=== PATIENT | female | born 1975 | race Caucasian/White ===

== ENCOUNTER 2016-06-03 09:59 | Emergency (ER) | payer BC, OTHER ==
[~2016-06-03] VITALS: Ht 162.6 cm; Wt 77.1 kg
[2016-06-03] MEDS ORDERED: LIDOCAINE 1% INJ 50 ML MDV IJ ONE (10:30)
[2016-06-03 11:10] VITALS: BP 119/68
== END 2016-06-03 11:11 | disposition home or self-care (01) ==
LOC: ER 10:01
DX: S61.412A Laceration without foreign body of left hand, initial encounter (principal); Z88.8 Allergy status to other drugs, medicaments and biological substances; Z88.5 Allergy status to narcotic agent; K50.90 Crohn's disease, unspecified, without complications; W25.XXXA Contact with sharp glass, initial encounter; Y93.G1 Activity, food preparation and clean up; Y92.89 Other specified places as the place of occurrence of the external cause; Y99.8 Other external cause status
CPT/HCPCS: 12002; 99283; A4606; A6402; J3490; Z7610

== ENCOUNTER 2016-06-13 08:40 | Emergency (ER) | payer BC ==
[~2016-06-13] VITALS: Ht 160 cm; Wt 53.1 kg
[2016-06-13 08:46] VITALS: BP 135/74
== END 2016-06-13 09:32 | disposition home or self-care (01) ==
LOC: ER 08:43
DX: S61.412D Laceration without foreign body of left hand, subsequent encounter (principal); Z88.6 Allergy status to analgesic agent; Z88.8 Allergy status to other drugs, medicaments and biological substances; Z88.5 Allergy status to narcotic agent
CPT/HCPCS: 99281; A4606; Z7502; Z7610